=== PATIENT | female | born 2000 | race Two or more races ===

== ENCOUNTER → 2024-07-10 | Outpatient (CLI) | payer BC, SELFPAY ==
[2024-07-10 13:21] LABS: Beta HCG,Quantitative < 1 mIU/mL (<5.0); Thyroid Stimulating Hormone 1.34 uIU/mL (0.55-4.78)
[2024-07-24 06:38] LABS: 17-Hydroxyprogesterone* 71 ng/dL
== END | disposition home or self-care (01) ==
LOC: COPL 11:37
PROVIDERS: PCP Family Medicine; Referring Provider Family Medicine; Visit Provider Family Medicine
DX: N92.6 Irregular menstruation, unspecified (principal)
CPT/HCPCS: 36415; 83498; 84443; 84702